=== PATIENT | male | born 1965 | race Caucasian/White ===

== ENCOUNTER 2023-04-04 00:20 | Emergency (ER) | payer MEDICAID ==
[~2023-04-04] VITALS: Ht 165.1 cm; Wt 105.0 kg
[2023-04-04 00:26] VITALS: O2SAT 100
[2023-04-04 00:54] LABS: BASOPHILS % 0.7 % (0.0-2.0); EOSINOPHILS % 2.2 % (0.0-5.0); HEMATOCRIT. 39.7 % (42.0-52.0); HEMOGLOBIN. 13.7 g/dL (14.0-18.0); LYMPHOCYTES % 27.6 % (20.0-50.0); MEAN CORPUSCULAR HEMOGLOBIN 30.3 pg (28.0-32.0); MEAN CORPUSCULAR HGB CONC 34.5 g/dL (31.0-37.0); MEAN CORPUSCULAR VOLUME 87.8 fL (80.0-94.0); MONOCYTES % 7.5 % (2.0-8.0); PLATELET 222 x1000/uL (130-400); RED BLOOD CELL COUNT 4.52 mill/uL (4.7-6.1); RED CELL DISTRIBUTION WIDTH 12.8 % (11.6-14.6); WHITE BLOOD COUNT 10.6 x1000/uL (4.5-11.0)
[2023-04-04 01:09] LABS: ALANINE AMINOTRANSFERASE 24 IU/L (10-49); ALBUMIN 4.4 g/dL (3.2-4.8); ASPARTATE AMINOTRANSFERASE 22 IU/L (<34); BILIRUBIN TOTAL 0.9 mg/dL (0.1-1.0); CALCIUM 9.5 mg/dL (8.7-10.4); CARBON DIOXIDE 26 mEq/L (21-32); CHLORIDE 105 mEq/L (98-107); CREATININE 0.9 mg/dL (0.6-1.3); GLUCOSE 113 mg/dL (70-105); POTASSIUM 4.2 mEq/L (3.5-5.1); SODIUM 140 mEq/L (136-145); TROPONIN I HIGH SENSITIVITY 14 ng/L (3.0-53); UREA NITROGEN BLOOD 17 mg/dL (9-23)
[2023-04-04 01:43] LABS: INR 0.9; PARTIAL THROMBOPLASTIN TIME 25.8 sec (23.4-31.0); PROTHROMBIN TIME 10.4 sec (9.6-11.0)
[2023-04-04] MEDS ORDERED: SODIUM CHLORIDE 0.9% 1,000 ML IV NR (02:15)
[2023-04-04] MEDS: GUAIFENESIN 600MG ER TABLET PO NR (02:15)
[2023-04-04] MEDS: ACETAMINOPHEN 325MG TABLET PO NR (02:15)
[2023-04-04 04:28] LABS: TROPONIN I HIGH SENSITIVITY 14 ng/L (3.0-53)
[2023-04-04] MEDS ORDERED: ALBU6.7H15 INH (05:34)
[2023-04-04] MEDS ORDERED: ACET-2708 MT (05:34)
[2023-04-04] MEDS ORDERED: GUAI600T26 MT (05:34)
[2023-04-04 06:08] VITALS: BP 114/72; PULSE 63; RESP 18; TEMP 98.6
== END 2023-04-04 06:09 | disposition home or self-care (01) ==
LOC: ER 00:20
DX: R06.00 Dyspnea, unspecified (principal); R42 Dizziness and giddiness; J40 Bronchitis, not specified as acute or chronic; I25.2 Old myocardial infarction; I10 Essential (primary) hypertension; E11.9 Type 2 diabetes mellitus without complications; Z98.890 Other specified postprocedural states; Z00.00 Encounter for general adult medical examination without abnormal findings
CPT/HCPCS: 36415; 71045; 80053; 83880; 84484; 85025; 93005; 99285